=== PATIENT | female | born 2000 | race Caucasian/White ===

== ENCOUNTER 2023-01-18 22:04 | Observation (INO) | payer MEDICAID ==
[~2023-01-18] VITALS: Ht 160 cm; Wt 70.8 kg
== END 2023-01-18 23:45 | disposition home or self-care (01) ==
LOC: SPU 22:04
PROVIDERS: ADMIT Specialist; ATTEND Specialist
DX: O62.9 Abnormality of forces of labor, unspecified (principal); O99.013 Anemia complicating pregnancy, third trimester; D64.9 Anemia, unspecified; O99.343 Other mental disorders complicating pregnancy, third trimester; F41.8 Other specified anxiety disorders; F90.9 Attention-deficit hyperactivity disorder, unspecified type; O99.513 Diseases of the respiratory system complicating pregnancy, third trimester; J45.909 Unspecified asthma, uncomplicated; Z3A.40 40 weeks gestation of pregnancy
CPT/HCPCS: 81002; G0378; G0379